=== PATIENT | female | born 1950 | race Caucasian/White ===

== ENCOUNTER 2022-08-11 13:26 | Outpatient (OUT) | payer MEDICARE, OTHER, SELFPAY ==
--- NOTE | 2022-08-11 16:16 | MISC_ITS ---
CONSULTATION DATE: ??08/11/2022 TO:? Carlos Wagner M.D. CHIEF COMPLAINT:? Includes severe right sided knee pain, right leg pain. HISTORY:? She reports the pain as being 5-7/10 pain, sharp in character.? She reports that she has significant stiffness around her right knee joint after being sedentary for even short periods of time.? When going to ambulate, she reports that this stiffness takes a short while to improve; however, she still has pain with the weight bearing maneuvers.? She has undergone a right knee joint injection under fluoroscopic guidance on 05/26/2022.? At that point, we had injected Durolane into her right knee joint.? She reports the pain has been dramatically improved until approximately four weeks ago, when she had recurrence of her pain back to baseline.? EXAM:? Her examination is notable for patient having no clinical radiculopathy or myelopathy involving the lower extremities.? Patient had edema around the right knee joint from the effusion.? Patient had tenderness mainly on the medial aspect of her right knee joint.? She had no signs consistent with ligamental laxity.? She had a negative J-sign and she had pain with medial and lateral compartment loading maneuvers.? Patient also noted to have significant myofascial spasm of the right medial head of her hamstrings, as well as the right medial head of her gastrocnemius muscle. IMPRESSION:? Our impression is patient with chronic pain secondary to osteoporosis right knee joint.? Failed conservative therapy which included medication management, physical therapy, activity modification, corticosteroid injection to the right knee joint, and finally failure with Durolane.? She does not wish to have surgery of her right knee joint, and she is requesting that we offer her non-surgical options.? RECOMMENDATIONS:? We have given her the option of proceeding with a genicular nerve block on the right side, followed by possible rhizotomy using radiofrequency ablation of the right genicular nerve.? I have gone over the details of the procedure with the patient.? I have also recommended she consider a trigger point injection of the right hamstring and gastrocnemius muscle, to be done in the office on today?s visit.? Of note, status post trigger point injection of the right hamstring and gastrocnemius muscle, she reports dramatic reduction in her pain symptoms.? As part of providing excellent, safe, comprehensive care, the following was completed at our patient's visit: 1. A medication reconciliation and review to ensure accurate knowledge of current/active medications, including asking our patients to inform us about any [id number] medications or herbal remedies/nutritional supplements/alternative remedies. 2. A review to specifically ensure our patients have had annual screening for: elevated body mass index (BMI, see intake chart for exact total), tobacco use, screening for depression, and screening for unhealthy alcohol use.? When screening is concerning, patients are provided with education and the specific recommendation to discuss the concerning health issue and treatment options with their primary care provider. MIKE
--- NOTE | 2022-08-11 16:16 | MISC_ITS ---
PROCEDURE DATE: ??08/11/2022 PROCEDURE:? Trigger point injection right hamstring, right gastrocnemius muscle performed in the office as an outpatient. PREOPERATIVE DIAGNOSIS:? Myofascial spasm right hamstring, right gastrocnemius muscle. POSTOPERATIVE DIAGNOSIS:? Myofascial spasm right hamstring, right gastrocnemius muscle. SOLUTION USED FOR INJECTION:? 2 mL of 2% lidocaine, 2 mL of 0.25% Marcaine and 20 mg of Kenalog, total of 5 mL and 2 mL was used for the injection at each site. IMMEDIATE COMPLICATIONS:? None. PROCEDURE:? After informed consent was obtained from the patient, placed in the supine position with a slight left hip tilt to maximize exposure to the medial head of the right gastrocnemius muscle as well as the medial had of the right hamstring.? Area was prepped with alcohol.? A 25 gauge 1 ? inch needle was inserted into the right gastrocnemius muscle.? Needle tip was advanced until there was a twitch response, at which point we injected 2 mL of solution.? This was repeated in a similar fashion on the right hamstring.? No indication of intravascular or intraneural needle tip placement or injection.? Patient reports reduction of pain symptoms post procedurally. MIKE
== END 2022-08-11 13:27 ==
PROVIDERS: PCP Family Medicine; Visit Provider Anesthesiology Pain Medicine
DX: M25.561 Pain in right knee (principal); M81.8 Other osteoporosis without current pathological fracture; M62.838 Other muscle spasm
CPT/HCPCS: 20552

== ENCOUNTER 2022-08-24 10:57 | Outpatient (REF) | payer MEDICARE, OTHER, SELFPAY | END 2022-08-24 10:58 | LOC: LAB 10:57 | PROVIDERS: PCP Family Medicine; Visit Provider Family Medicine | DX: R33.9 Retention of urine, unspecified (principal); R41.0 Disorientation, unspecified; R53.83 Other fatigue; R73.9 Hyperglycemia, unspecified | CPT/HCPCS: 87086; 87150 ==

== ENCOUNTER 2022-08-25 10:51 | Day surgery (SDC) | payer MEDICARE, OTHER, SELFPAY ==
[2022-08-25 11:47] LABS: Glucometer 171 mg/dL (74-106)
[2022-08-25 11:49] VITALS: BP 133/84; PULSE 96; RESP 16; TEMP 36.6; O2SAT 97
[2022-08-25] MEDS: BUPIVACAINE HCL 0.25% PF 25 MG/10 ML VIAL 4 ML INJ (12:44)
[2022-08-25 12:45] VITALS: BP 133/77; PULSE 96; RESP 20; O2SAT 94
[2022-08-25 12:48] VITALS: BP 138/76; PULSE 93; O2SAT 90
--- NOTE | 2022-09-04 11:13 | W.PM.PROCNOT ---
Date of procedure: 08/25/22 Pre-op diagnosis: right knee pain/osteoarthritis Post-op diagnosis: same Procedure: Genicular nerve injection on the right side under fluoroscopic guidance. SOLUTION USED FOR INJECTION: Marcaine 0.25%. IMMEDIATE COMPLICATIONS: None. PROCEDURE: After informed consent was obtained from the patient, brought to the OR, placed in the supine position. Skin overlying the area was prepped and draped in sterile fashion. Subsequently, a 25 gauge spinal needle was inserted over the inferior medial genicular nerve. Landmarks were identified under fluoroscopy. Needle tip advanced until the desired location was achieved, at which point we ruled out intravascular or intraneural needle tip placement. 1 mL of solution was injected. This procedure was performed in a similar fashion at the superior medial and superior lateral branches of the genicular nerve. Throughout the procedure, no indication of intravascular or intraneural needle tip placement or injection. Post procedurally, needle removed. Patient tolerated the procedure with no complications, transferred to the recovery room in stable condition. She will be discharged home after meeting criteria. Patient informed to keep a pain diary for the first two hours post procedurally. Anesthesia: Local Surgeon: Simba Quiroga
== END 2022-08-25 12:53 | disposition home or self-care (01) ==
LOC: SURGOUT 10:52
PROVIDERS: PCP Family Medicine; Visit Provider Anesthesiology Pain Medicine
DX: M17.11 Unilateral primary osteoarthritis, right knee (principal); M25.561 Pain in right knee; E11.9 Type 2 diabetes mellitus without complications
CPT/HCPCS: 36415; 64454; 82948

== ENCOUNTER 2022-09-22 08:33 | Day surgery (SDC) | payer MEDICARE, OTHER, SELFPAY ==
[2022-09-22 09:13] VITALS: BP 121/74; PULSE 106; RESP 16; TEMP 36.5; O2SAT 100
[2022-09-22 09:16] LABS: Glucometer 86 mg/dL (74-106)
[2022-09-22 10:01] VITALS: RESP 20
[2022-09-22 10:03] VITALS: BP 128/72; PULSE 92; O2SAT 95
[2022-09-22] MEDS: BUPIVACAINE HCL 0.25% PF 25 MG/10 ML VIAL 4 ML INJ (10:06)
[2022-09-22] MEDS: LIDOCAINE HCL 2% 400 MG/20 ML MDV 15 ML INJ (10:07)
[2022-09-22] MEDS: METHYLPREDNISOLONE ACETATE 40 MG/ML VIAL INJ (10:07)
[2022-09-22 10:09] VITALS: BP 127/79; PULSE 92; O2SAT 97
--- NOTE | 2022-09-22 10:35 | W.PM.PROCNOT ---
Date of procedure: 09/22/22 Pre-op diagnosis: Right Knee Osteoarthritis Post-op diagnosis: same Procedure: Right knee genicular nerve Radiofrequency ablation PreOp diagnosis: pain secondary to include knee osteoarthritis Postop diagnosis same Under fluoroscopic guidance Rhizotomy was created using radio frequency ablation at 80?C for 90 seconds 1 to 2 lesions created at each site. Post lesioning injection of 2 mL each of 0.25% Marcaine and 2% lidocaine with Depo-Medrol 40mg. 0.5 to 1 mL injected at each site Anesthesia local 2% lidocaine for local anesthetic Timeout process compliant After informed consent obtained.Patient brought to the procedure room placed in the supine position skin overlying the area was prepped and draped in a sterile fashion using betadine. 25 gauge needle was used to create a skin wheal over each of the targeted areas utilizing 2% lidocaine. A rhizotomy needle with a 10 mm active tip was inserted over each of the anesthetized areas and directed towards each of the genicular nerves accomplished under fluoroscopic guidance. after encountering the same we had positive sensory stimulation, negative motor stimulation was noted. lesions were then created. Post lesioning, steroid solution was injected needles removed. Patient was transferred to recovery room in stable condition to be discharged home after meeting criteria. Surgeon: Simba Quiroga
== END 2022-09-22 10:21 | disposition home or self-care (01) ==
LOC: SURGOUT 08:36
PROVIDERS: PCP Family Medicine; Visit Provider Anesthesiology Pain Medicine
DX: M17.11 Unilateral primary osteoarthritis, right knee (principal)
CPT/HCPCS: 36415; 64624; 82948; J1030

== ENCOUNTER 2022-10-07 11:18 | Outpatient (OUT) | payer MEDICARE, OTHER, SELFPAY ==
[2022-10-07 11:44] LABS: Basophils Percent Auto 0.3 % (0.2-2.0); Eosinophils Absolute Auto 0.2 10^3/uL (0.0-0.7); Eosinophils Percent Auto 2.1 % (0.9-7.0); Hematocrit 35.7 % (36.0-48.0); Hemoglobin 10.9 g/dL (12.0-16.0); Immature Granulocytes Abs Auto 0.02 10^3/uL (0.00-0.03); Immature Granulocytes Pct Auto 0.3 % (0.0-0.5); Lymphocytes Absolute Auto 3.2 10^3/uL (1.2-3.8); Lymphocytes Percent Auto 44.9 % (20.5-60.0); Mean Corpuscular HGB Conc 30.5 g/dL (29.9-35.2); Mean Corpuscular Hemoglobin 25.1 pg (26.7-34.0); Mean Corpuscular Volume 82.3 fL (81.0-99.0); Mean Platelet Volume 9.7 fL (9.5-13.5); Monocytes Absolute Auto 0.4 10^3/uL (0.3-0.8); Monocytes Percent Auto 5.3 % (1.7-12.0); Neutrophils Absolute Auto 3.4 10^3/uL (1.4-6.5); Neutrophils Percent Auto 47.1 % (43.0-75.0); Platelet Count 336 10^3/uL (150-450); Red Blood Count 4.34 10^6/uL (4.20-5.40); Red Cell Distribution Width 17.2 % (11.0-15.0); White Blood Count 7.2 10^3/uL (4.0-11.0)
[2022-10-07 12:29] LABS: Alanine Aminotransferase 12 U/L (14-59); Albumin Globulin Ratio 0.6; Albumin Level 3.1 g/dL (3.4-5.0); Alkaline Phosphatase 81 U/L (46-116); Anion Gap 9.9; Aspartate Amino Transferase 10 U/L (15-37); BUN Creatinine Ratio 10.3; Bilirubin Total 0.4 mg/dL (0.2-1.0); Calcium 9.3 mg/dL (8.5-10.1); Carbon Dioxide 28.4 mmol/L (21.0-32.0); Chloride 100 mmol/L (98-107); Estimated GFR (African America >60 (>=60); Estimated GFR (Non-African Ame >60 (>=60); Globulin 4.8 g/dL; Glucose 351 mg/dL (74-106); Potassium 4.3 mmol/L (3.5-5.1); Sodium 134 mmol/L (136-145); Total Protein 7.9 g/dL (6.4-8.2)
[2022-10-08 04:07] LABS: CEA 23.4 ng/mL (0.0-4.7)
== END 2022-10-07 11:19 | disposition home or self-care (01) ==
LOC: LAB 11:22
PROVIDERS: PCP Family Medicine; Visit Provider Family Medicine
DX: D64.9 Anemia, unspecified (principal); H60.91 Unspecified otitis externa, right ear
CPT/HCPCS: 36415; 80053; 82378; 83540; 85025

== ENCOUNTER 2022-10-21 10:10 | Outpatient (OUT) | payer MEDICARE, OTHER, SELFPAY ==
--- NOTE | 2022-10-21 10:37 | PM.CN ---
Consult Note: HPI Data of Consult Patient: known to practice within the last 3 years Requesting Physician: Frances Narvaez NP Primary Care Provider: Carlos Wagner MD Consult Narrative Reason for consult: right genicular RFA f/u Narrative: Lily Leon is a pleasant 71 year old female who presents for chronic right knee pain. Patient had a right genicular RFA on 09/22/22 and is reporting 100% pain relief and improvement in ADLs, including ability to ambulate further distance and stand longer without pain Patient has terminal cancer and is on hospice at this time. cc:: CC: Frances Narvaez NP Review of Systems ROS Status of ROS 10 or more systems reviewed and unremarkable except as noted in history and below [facility] Medical History (Updated 10/21/22 @ 11:19 by Frances Narvaez NP) Surgical History Meds Home Medications and Allergies Home Medications Medication Instructions Recorded Confirmed Type acetaminophen 300 mg-codeine 30 mg 1 tab PO Q6H PRN pain 08/12/22 09/22/22 History tablet infliximab 100 mg intravenous IV .[id number] 08/12/22 History solution (Remicade) insulin pen,reusable,BT,aspart 08/12/22 08/25/22 History (InPen (for Novolog or Fiasp) [place] subcutaneous) insulin pump controller, RF 08/12/22 08/25/22 History prednisone 5 mg tablet 5 mg PO DAILY 08/12/22 09/22/22 History tramadol 50 mg tablet 50 mg PO BID PRN pain 08/12/22 09/22/22 History Allergies Allergy/AdvReac Type Severity Reaction Status Date / Time Penicillins Allergy Severe itching Verified 09/22/22 09:11 Exam Constitutional Common normals: no apparent distress, oriented x3, healthy appearing, alert and well nourished General appearance: cooperative Nutritional appearance: thin (on hospice) HENMT Common normals: normocephalic Head and scalp: normocephalic Mouth: oral and palatal mucosa normal Eye Common normals: PERRL, EOMs intact bilaterally and conjunctivae normal Pupil: PERRL Neck & C-Spine Common normals: full ROM General: normal visual inspection Cervical spine: cervical ROM normal Chest Common normals: inspection of chest normal Respiratory Common normals: normal respiratory effort, no retractions and no use of accessory muscles Extremity Common normals: normal to inspection and full ROM Right lower extremity: knee joint (enlarged bilaterally, full rom bilaterally, 5/5 strength bilaterally) Right knee: inspection and ROM Left lower extremity: knee joint (enlarged bilaterally, full rom bilaterally, 5/5 strength bilaterally) Left knee: inspection and ROM Neuro Common normals: oriented x3, CN's II-XII intact bilaterally, moves all extremities, no focal motor deficits, no sensory deficits noted, deep tendon reflexes 2+ bilaterally and gait normal Sensorium/orientation: alert Motor exam: strength 5/5 throughout and no movement abnormalities noted Psych Common normals: mental status grossly normal, thought process normal, cooperative, affect normal, speech normal and activity/motor behavior normal Speech: normal speech Thought process: normal thought process Assessment and Plan Assessment and Plan (1) Right knee pain: Assessment and Plan: failed conservative tx. received 100% pain relief and improvement in ability to complete ADLs, stand longer, walk further distance after genicular RFA to right knee Plan continue with hospice PRN follow up with our office
== END 2022-10-21 10:11 | disposition home or self-care (01) ==
LOC: PM 10:11
PROVIDERS: PCP Family Medicine; Visit Provider Nurse Practitioner
DX: M25.561 Pain in right knee (principal)
CPT/HCPCS: G0463